=== PATIENT | female | born 1980 | race Caucasian/White ===

== ENCOUNTER → 2018-03-15 | Day surgery (SDC) | payer OTHER ==
[~2018-03-15] VITALS: Ht 175.3 cm; Wt 101.8 kg
[~2018-03-15] MED LIST: CEPH-459 PO; CHLORHEXIDINE GLUCONATE 2 % 1 PACK (2 CLOTHS) TOPICAL PRN; DEXAMETHASONE SOD PHOS 4 MG/ML VIAL IV ONE; DO NOT ADM ANY ANTICOAGULANT DRUGS PRN; ESMOLOL HCL 100 MG/10 ML VIAL IV ONE; FUROSEMIDE 40 MG/4 ML VIAL ONE; GLYCOPYRROLATE 1 MG/5 ML SYRINGE IV PUSH ONE; LACTATED RINGER'S 1000 ML INJ 1,000 ML IV ONE; LACTATED RINGER'S 1000 ML IV PRN; LIDOCAINE HCL 1% PF 5 ML SYRINGE OTHER ONE; METOPROLOL TARTRATE 25 MG TAB PO PRN; MIDAZOLAM HCL 2 MG/2 ML VIAL ONE; NEOSTIGMINE 5 MG/5 ML SYRINGE IV PUSH ONE; ONDANSETRON HCL 4 MG/2 ML VIAL IV ONE; ONDANSETRON ODT 4 MG TAB PO PRN; PERC5TAB12 PO; PHENYLEPH/NS 1000 MCG/10 ML SYR IV ONE; POVIDONE IODINE 5% (ANTISEPSIS KIT) 4 APPLICATIONS EACH NARE PRN; PROPOFOL 200 MG/20 ML AMP IV ONE; ROCURONIUM INJ 50 MG/5 ML SYRINGE IV PUSH ONE; SODIUM CHLORID 0.9% 500 ML IV PRN; TAMS0.4C4 PO; ceFAZolin 1,000 MG/NS 100 ML IV SCH; ceFAZolin INJ 1,000 MG VIAL IV ONE; ePHEDrine/NS 25 MG/5 ML SYRINGE IV ONE; hydrALAZINE HCL 20 MG/ML VIAL IV ONE; oxyCODONE/ACETAMINOPHEN 5 MG/325 MG TAB PO PRN
--- NOTE | 2018-03-15 12:37 | PD.OP ---
Operative Report Date of Surgery: Mar 15, 2018 Preoperative Diagnosis: (1) Bilateral ureteral calculi Postoperative Diagnosis: (1) Bilateral ureteral calculi Procedure: Cystoscopy, bilateral retrograde pyelograms, bilateral ureteroscopy with laser lithotripsy and bilateral ureteral stent placement Anesthesia: General Surgeon: Juan Hunter Toy Mechanic(s): None Operation and Findings: Indication for procedures: Case of a pleasant 37-year-old female with history bilateral obstructing ureteral calculi who presents now for bilateral ureteroscopy with laser lithotripsy. Operative procedure in detail: Patient was brought to the operating room suite placed supine on the OR table. She was then placed under general anesthesia. She was then repositioned in the dorsolithotomy position and prepped and draped in normal sterile fashion. After an appropriate timeout was undertaken I proceeded with cystoscopic evaluation utilizing the rigid cystoscope with the 20 [address] Helenian sheath and the 30 lens. Both right and left ureteral orifices were in correct anatomic position with no apparent reflux of urine noted. I then proceeded with passing a sensor 0.035 wire up the patient's right ureter all the way up into the right renal pelvis. Under fluoroscopy multiple stones were seen involving the distal ureter. I then removed the cystoscope and secured the wire to a sterile drape with hemostat. The self dilating ureteroscope was then utilized and passed up the right ureter alongside the previously placed wire up to the point of the obstructing calculi. There are multiple calculi noted and they were all broken down into small fragments with the 200 m holmium laser fiber. Once the stones were broken down I retrieved several of the larger fragments with the 2.4 [facility] Helenian stone basket. Some of the stone fragments were sent off for chemical composition analysis. I readvanced ureteroscope and advanced the scope all the way up to the right ureteropelvic junction and slowly withdrawn.. The ureter was markedly edematous from the impacted stones and a decision was made to place a double-J stent. Initially a 6 [facility] Helenian open-ended ureteral catheter was advanced over the previously placed wire and the wire was withdrawn. A right retrograde Polygram study was performed to outline the collecting system. The guidewire was reintroduced and the open-ended catheter was exchanged for a Sarben 6 [facility] Helenian 24 cm double-J stent. The stent was placed on the both cystoscopic and fluoroscopic guidance without difficulty. The trailing string was left intact. I then proceeded to address the patient's left side in similar fashion. Once again the patient was noted to have multiple obstructing stones involving the distal left ureter. The stones were treated and fragments retrieved as was performed on the right side. The ureteroscope was reintroduced and advanced all the way up to the left UPJ and slowly withdrawn. Once again the patient was noted to have significant edema involving the distal ureter. A 6 [facility] Helenian open-ended catheter was advanced over the previously placed wire on the left, the wire withdrawn and a retrograde pyelogram study performed to outline the collecting system. The guidewire was reintroduced and the open-ended catheter was then exchanged for a 6 [facility] Helenian 24 cm Sarben stent. The stent was placed on the both cystoscopic and fluoroscopic guidance without difficulty. The trailing string was left in place. The bladder was drained of all irrigant fluid and cystoscope was withdrawn. A 16 [address] Helenian 10 cc Ramos catheter was then placed and connected to gravity drainage. The patient tolerated the procedures without complications and was transferred to the PACU in satisfactory condition. Juan Hunter MD Mar 15, 2018 12:37
[2018-03-15 13:24] VITALS: BP 134/79; PULSE 74; RESP 18; TEMP 98; O2SAT 98
--- NOTE | 2018-03-15 14:10 | RADRPT ---
EXAM DATE: 03/15/2018 1:19 PM EDT AGE/SEX: 37 years / Female INDICATIONS: Bilateral kidney stones, Bilateral Lithotripsy, Bilateral stent placement CLINICAL DATA: This is the patient's initial encounter. Patient reports that signs and symptoms have been present for 1 day and indicates a pain score of Nonresponsive. MEDICAL/SURGICAL HISTORY: Non-responsive. Bilateral kidney stones Non-responsive. COMPARISON: No prior exams available for comparison. FINDINGS: 3 images have been submitted. Bilateral ureteral stents are in place. These appear well placed. CONCLUSION: Good placement of bilateral ureteral stents. Electronically signed by: Reid Art MD 03/15/2018 2:09 PM EDT
== END | disposition home or self-care (01) ==
LOC: HSDC 07:30
PROVIDERS: ATTEND Urology
DX: N20.1 Calculus of ureter (principal)
CPT/HCPCS: 00918; 52356; 74018; 74420; 76000; 82370; 88300; C1726; C1769; J0360; J0690; J1100; J2250; J2370; J2405; J2710; J3010; J7120; J1940